=== PATIENT | female | born 1980 | race Caucasian/White ===

== ENCOUNTER → 2022-08-27 | Outpatient (CLI) | payer MEDICARE, MEDICAID, SELFPAY ==
[2022-08-27 12:32] LABS: Absolute Lymphocyte Count 2.83 X10^3/uL (0.83-4.51); Absolute Neutrophil Count 6.5 X10^3/uL (2.0-7.7); Basophil# 0.13 X10^3/uL; Basophil% 1.3 % (0-1); Eosinophil# 0.32 X10^3/uL; Eosinophils% 3.1 % (0-5); Hematocrit 42.6 % (37-47); Hemoglobin 13.8 g/dL (12.0-15.0); Lymphocyte # 2.83 X10^3/ul (0.83-4.51); Lymphocyte % 27.4 % (19-41); Mean Corp Hgb Conc 32.4 g/dL (32-36); Mean Corpuscular Hgb 28.9 pg (27.0-32.0); Mean Corpuscular Volume 89.1 fL (81-99); Mean Platelet Vol. 10.3 fl (6.2-12.0); Monocyte# 0.55 X10^3/uL; Monocyte% 5.3 % (0-10); NRBC Flagged by Analyzer 0 % (0-5); Neutrophil # 6.45 X10^3/uL (2.7-7.7); Neutrophil % 62.4 % (47-70); Platelet Count 431 K/mm3 (150-450); RBC Distribution Width CV 12.9 % (11.6-14.6); RBC Distribution Width SD 42.1 fl (35.1-43.9); Red Blood Count 4.78 M/mm3 (4.2-5.4); White Blood Count 10.3 K/mm3 (4.4-11.0)
[2022-08-27 12:59] LABS: Vitamin B12 439 pg/mL (211-911)
[2022-08-27 13:32] LABS: ALB/GLOB Ratio 0.8 RATIO (0.9-2.4); AST(SGOT) 15 U/L (15-37); Alanine Aminotransfer ALT/SGPT 27 U/L (13-56); Albumin, Serum 3.4 g/dL (3.2-5.0); Alkaline Phosphatase 86 U/L (45-117); Anion Gap 10 (5-15); BUN 7 mg/dL (7-18); BUN/Creat Ratio 11.7 RATIO (10-20); Calcium,Total 8.6 mg/dL (8.5-10.1); Chloride 110 mmol/L (98-107); EST Glomerular Filtration Rate 118 mL/min (>60); Est Glom Filt Rate - Afr Amer 143 mL/min (>60); Globulin 4.5 g/dL (2.2-4.2); Glucose 115 mg/dL (74-106); Magnesium 2.1 mg/dL (1.6-2.6); Potassium 3.6 mmol/L (3.5-5.1); Protein, Total 7.9 g/dL (6.4-8.2); Sodium Level 140 mmol/L (136-145); Thyroid Stim Hormone (TSH) 1.76 uIU/mL (0.358-3.74)
[2022-08-28 13:07] LABS: Vitamin D 1,25-Dihydroxy 33.6 pg/mL (24.8-81.5)
[2022-08-30 04:07] LABS: Vitamin B1, Thiamine 116.7 nmol/L (66.5-200.0)
== END | disposition home or self-care (01) ==
PROVIDERS: PCP Student in an Organized Health Care Education/Training Program; Referring Provider Psychiatry & Neurology Neurology; Visit Provider Psychiatry & Neurology Neurology
DX: G35 Multiple sclerosis (principal); I10 Essential (primary) hypertension; E55.9 Vitamin D deficiency, unspecified
CPT/HCPCS: 36415; 80053; 82607; 82652; 82746; 83735; 84425; 84443; 85025

== ENCOUNTER → 2022-09-04 | Outpatient (CLI) | payer MEDICARE, MEDICAID, SELFPAY ==
--- NOTE | 2022-09-04 13:21 | MRI_ITS ---
STUDY: MRI LUMBAR SPINE WITHOUT CONTRAST REASON FOR EXAM: Female, 41 years old. Multiple sclerosis; bowel/bladder incontinence TECHNIQUE: Standardized fat and water weighted pulse sequences were obtained in the sagittal and axial planes. Pre and postcontrast imaging obtained. Contrast: 23 mL clariscan COMPARISON: None FINDINGS: Vertebral bodies and alignment. 1. Vertebral body height and alignment are maintained. No evidence of marrow edema or occult fracture. 2. Paraspinous soft tissue planes have normal appearance. Normal appearance of the muscular fascial planes of the erector spinae. 3. Normal appearance of the sacrum and sacroiliac joints. 4. 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 5. No abnormal contrast enhancement involving the bony elements and soft tissues. Intervertebral disks levels. T12-L1: Normal endplates. Normal disc height, hydration and morphology. Normal bilateral facet joints. Normal central canal and bilateral lateral recesses. Normal bilateral intervertebral neural foramina. L1-2: Normal endplates. Normal disc height, hydration and morphology. Normal bilateral facet joints. Normal central canal and bilateral lateral recesses. Normal bilateral intervertebral neural foramina. L2-3: Normal endplates. Normal disc height, hydration and morphology. Normal bilateral facet joints. Normal central canal and bilateral lateral recesses. Normal bilateral intervertebral neural foramina. L3-4: No disc herniation or canal stenosis. Mild facet arthrosis. Mild crowding of nerve roots lateral recesses greater on LEFT than RIGHT without pavel nerve root impingement. L4-5: No disc herniation or canal stenosis, mild facet hypertrophic changes. Mild crowding of nerve roots lateral recesses greater on LEFT than RIGHT without pavel nerve root impingement. Neural foramina are widely patent L5-S1: Disc desiccation, small focal RIGHT posterior lateral foraminal disc protrusion with effacement of the RIGHT lateral recess, there is mild contact with the RIGHT S1 nerve root. RIGHT L5 nerve root passes without compromise. Spinal cord: Normal appearance of the spinal cord and conus. Conus is located at L1. Cauda equina has normal appearance. No evidence of cord compression or edema. No intramedullary signal abnormality noted. No abnormal contrast enhancement. MRI/Spine Lumbar W/WO Contrast IMPRESSION: 1. Disc desiccation and a small focal RIGHT posterior lateral foraminal disc protrusion at L5-S1 with effacement of the RIGHT lateral recess I, early RIGHT S1 nerve root impingement. No other evidence of nerve root impingement compression or displacement. 2. Diffusely narrow canal which can be seen in the setting of congenitally short short pedicles. 3. Mild multilevel facet arthropathy. 4. Normal appearance of the visualized spinal cord and conus without evidence of compression or intramedullary signal or contrast abnormality. Electronically Signed: Sadiq Person MD at 21:25 EDT ,
[2022-09-04 13:53] LABS: CREATININE FINGERSTICK < 0.9 mg/dL (0.55-1.02); EGFR FINGERSTICK > 60.0000 mL/min (>60)
== END | disposition home or self-care (01) ==
PROVIDERS: PCP Student in an Organized Health Care Education/Training Program; Referring Provider Psychiatry & Neurology Neurology; Visit Provider Psychiatry & Neurology Neurology
DX: G35 Multiple sclerosis (principal)
CPT/HCPCS: 72158; A9575